=== PATIENT | male | born 2000 | race Caucasian/White ===

== ENCOUNTER 2019-07-26 22:23 | Emergency (ER) | payer SELFPAY ==
[2019-07-26] MEDS ORDERED: predniSONE 20 MG TAB ONE (23:46)
== END 2019-07-26 23:52 | disposition home or self-care (01) ==
LOC: MADERS 22:23
DX: J02.9 Acute pharyngitis, unspecified (principal); F17.220 Nicotine dependence, chewing tobacco, uncomplicated
CPT/HCPCS: 87081; 87430; 99283; J7512

== ENCOUNTER 2020-06-25 08:42 | Emergency (ER) | payer SELFPAY | END 2020-06-25 09:30 | disposition home or self-care (01) | LOC: MADERS 08:42 | DX: R11.2 Nausea with vomiting, unspecified (principal); R51 Headache; F17.220 Nicotine dependence, chewing tobacco, uncomplicated | CPT/HCPCS: 99283 ==

== ENCOUNTER 2020-08-29 23:50 | Emergency (ER) | payer SELFPAY ==
[2020-08-30] MEDS ORDERED: Ketorolac Tromethamine 30 MG/ML VIAL ONE (00:56)
[2020-08-30] MEDS ORDERED: Ondansetron ODT 4 MG TAB ONE (00:56)
[2020-08-30 19:30] LABS: SARS-CoV-2 MS2 Positive; SARS-CoV-2 N Gene Negative; SARS-CoV-2 S Gene Negative; SARS-CoV-2 by NAA Not Detected (NotDetected); SARS-CoV-2 orf1ab Negative
== END 2020-08-30 01:28 | disposition home or self-care (01) ==
LOC: MADERS 23:50
DX: J20.9 Acute bronchitis, unspecified (principal); R11.2 Nausea with vomiting, unspecified; Z20.828 Contact with and (suspected) exposure to other viral communicable diseases; F17.220 Nicotine dependence, chewing tobacco, uncomplicated
CPT/HCPCS: 87635; 96372; 99283; J1885; Q0162; U0003